=== PATIENT | male | born 2000 | race Caucasian/White ===

== ENCOUNTER 2022-02-17 22:31 | Emergency (ER) | payer OTHER, SELFPAY ==
[2022-02-17 22:44] VITALS: BP 135/75; PULSE 85; RESP 16; TEMP 36.9; O2SAT 99; BMI 28.0
--- NOTE | 2022-02-17 23:17 | ED.SKABFB ---
HPI - Skin/Abscess/Foreign Bdy General Chief complaint: Skin/Abscess/Foreign Body Stated complaint: rt. side of face swollen/going to lt. side Time Seen by Provider: 02/17/22 23:10 Source: patient Mode of arrival: Ambulatory Limitations: no limitations History of Present Illness HPI narrative: 22-year-old male nonsmoker with noncontributory medical history presents with a chief complaint of about 12-24 hours of gradual increasing swelling on the right side of his face and cheek. It is mildly painful but he denies any redness or drainage. He is had no injury and denies systemic complaints such as fever, chills nor nausea or vomiting. He denies any dental pain or intraoral drainage. He denies any history of the same. He is fully immunized and denies other symptoms such as dizziness, weakness, lightheadedness. Related Data Previous Rx's Medication Instructions Recorded ketorolac 10 mg tablet 10 mg PO Q6H PRN pain #14 tabs 02/17/22 Review of Systems Review of Systems Narrative: GENERAL: Denies chills, fatigue, malaise, fever, sweats. HEENT: See HPI RESPIRATORY: Denies dyspnea, cough, wheezing, hemoptysis, sputum. CARDIOVASCULAR: Denies chest pain, palpitations, orthopnea, edema, GASTROINTESTINAL: Denies nausea, vomiting, abdominal pain, diarrhea, constipation, melena. : Denies dysuria, frequency, incontinence, hematuria, urinary retention. MUSCULOSKELETAL: denies weakness, joint pain, or bony pain SKIN: Denies rash, skin lesions, or other NEUROLOGIC: Denies weakness, headache, numbness, change in speech, confusion, seizures, incoordination. PSYCHIATRIC: No concerning psychosocial issues. 12 point review of systems is negative except for those stated above Patient History Social History Smoking Status: Never smoker Smoking Status: Never smoker alcohol intake frequency: a few times a month Alcohol type: beer Substance Use Type: does not use Exam Narrative Exam Narrative: GENERAL: [22] year old patient appears stated age. Well-developed patient, in mild distress. HEAD: Atraumatic. Normocephalic. EYES: Pupils equal round and reactive. Extraocular motions intact. No scleral icterus. No injection or drainage. ENT: Minimal right parotid swelling without erythema, induration or fluctuance, no obvious intraoral exam findings such as dental abscess, fracture or other. Nose without bleeding, purulent drainage. Throat without erythema, tonsillar hypertrophy or exudate. Airway patent. NECK: Trachea midline. Non tender CARDIOVASCULAR: Regular rate and rhythm without murmurs, gallops, or rubs. RESPIRATORY: Clear to auscultation. Breath sounds equal bilaterally. No wheezes, rales, or rhonchi. GASTROINTESTINAL: Abdomen soft, non-tender, nondistended. EXTREMITIES: No edema or joint tenderness. BACK: Nontender without deformity or crepitance. No flank tenderness. NEURO: AOx3. SKIN: No rash or erythema of visible areas Initial Vital Signs Initial Vital Signs: Vital Signs Temperature 98.4 F 02/17/22 22:44 Pulse Rate 85 02/17/22 22:44 Respiratory Rate 16 02/17/22 22:44 Blood Pressure 135/75 02/17/22 22:44 Pulse Oximetry 99 02/17/22 22:44 Oxygen Delivery Method 02/17/22 22:44 Course Vital Signs Vital signs: Vital Signs - 8 hr 02/17/22 22:44 Temperature 98.4 F Pulse Rate 85 Respiratory Rate 16 Blood Pressure 135/75 Pulse Oximetry 99 Oxygen Delivery Method Room Air MDM - Skin/Abscess/Foreign Bdy MDM Narrative Medical decision making narrative: Multiple etiologies for patient's symptoms considered including: [Mumps versus sialadenitis versus abscess versus other] No erythema or warmth to suggest infectious process, patient is fully immunized and findings are unilateral, mumps thought less likely. Patient treated for sialoadenitis, given return precautions Findings and discharge diagnosis discussed with patient/family followed by verbalization of understanding Return precautions discussed with patient/family whom verbalize understanding. Discharge Plan Departure Patient Disposition: Home Clinical Impression: Acute parotitis Instructions: DI for Parotitis-Adult Activity Restrictions/Additional Instructions: *You have been diagnosed with [right-sided salivary gland inflammation. As we discussed your exam and history are very reassuring and there is no evidence of an infectious process at this time and no indication for antibiotics.] *What to do: *Please continue to take your regular medications as directed. [ x] New medication prescriptions sent to your pharmacy: [[facility] in [place] ] [ ] New medication written as a paper prescription [ ] No new medications given *Please follow up with your primary care provider in 2-3 days, call for an appointment. Let them know you were seen in the Emergency Department and that we ask that you be seen in follow up. We will electronically transmit a record of today's note if your PCP is in our system * also, as we discussed regular consumption of hard candies or chewing gum that can increase saliva production can help this resolve as well *Return to Emergency Department if you should have any new, worsening or concerning symptoms, such as [fever greater than 101 F, shaking chills, worsening pain, persistent vomiting or other bothersome symptoms] Prescriptions: New ketorolac 10 mg tablet 10 mg PO Q6H PRN (Reason: pain) Qty: 14 0RF Visit Report Forms: Patient Portal/API
== END 2022-02-17 23:31 | disposition home or self-care (01) ==
PROVIDERS: Emergency Provider Emergency Medicine
DX: K11.21 Acute sialoadenitis (principal)
CPT/HCPCS: 99281